=== PATIENT | female | born 1940 | race Caucasian/White ===

== ENCOUNTER 2018-12-09 22:53 | Emergency (ER) | payer MEDICARE, OTHER ==
[~2018-12-09] VITALS: Ht 149.9 cm; Wt 63.6 kg
[2018-12-09 22:58] VITALS: Ht 149.9 cm; Wt 63.6 kg
[2018-12-09] MEDS ORDERED: LISINOPRIL20 MG PO (23:01)
[2018-12-09] MEDS ORDERED: HYDRALAZINE HCL10 MG PO (23:01)
[2018-12-09] MEDS ORDERED: CATAPRES0.1 MG PO (23:01)
[2018-12-09] MEDS ORDERED: TENORMIN50 MG PO (23:02)
[2018-12-09 23:23] LABS: BASOPHILS 0.2 % (0-2); EOSINOPHILS 2.1 % (0-7); HEMATOCRIT 35.8 % (36.0-48.0); HEMOGLOBIN 12.3 g/dL (12-16); IMMATURE GRANULOCYTES 0.1 % (0-5); LYMPHOCYTES 25.1 % (15-50); MCH 31.5 pg (26.0-34.0); MCHC 34.4 g/dL (31.0-37.0); MCV 91.6 fL (80.0-100.0); MONOCYTES 8.2 % (2-11); NEUTROPHILS 64.3 % (40-80); PLATELET COUNT 264 10x3/uL (130-400); RBC 3.91 10x6/uL (4.00-5.40); RDW 12.9 % (11.5-14.5)
[2018-12-09 23:37] LABS: APTT 27.7 SECONDS (22.8-39.4); INR 0.99 (0.85-1.17); PROTIME 12.6 SECONDS (11.6-15.0)
[2018-12-09 23:54] LABS: ALBUMIN 3.9 g/dL (3.4-5.0); ALKALINE PHOSPHATASE 44 U/L (46-116); ALT (SGPT) 25 U/L (10-68); BILIRUBIN - TOTAL 0.45 mg/dL (0.2-1.3); CALC OSMOLALITY 257 mosm/kg (275-300); CARBON DIOXIDE 27.6 mmol/L (21.0-32.0); CHLORIDE - SERUM 92 mmol/L (98-107); CREATININE - SERUM 0.9 mg/dL (0.6-1.3); GLUCOSE 126 mg/dL (74-106); POTASSIUM - SERUM 3.7 mmol/L (3.5-5.1); SODIUM 128 mmol/L (136-145); UREA NITROGEN 11 mg/dL (7-18); eGFR NON AFRICAN AMERICAN 64 mL/min (90-120)
[2018-12-10 00:04] LABS: CKMB 3.2 U/L (0.0-3.6); CREATINE KINASE 87 UL (21-215); MAGNESIUM - SERUM 1.6 mg/dL (1.8-2.4); TROPONIN-I < 0.017 ng/mL (0.000-0.060)
[2018-12-10 01:22] VITALS: BP 164/84
== END 2018-12-10 01:20 | disposition home or self-care (01) ==
LOC: D.ER 22:53
PROVIDERS: Family Medicine
DX: I10 Essential (primary) hypertension (principal)